=== PATIENT | female | born 1940 | race Caucasian/White ===

== ENCOUNTER → 2020-11-09 | Outpatient (CLI) | payer OTHER ==
[~2020-11-09] MED LIST: AXID300 MG PO; COLACE100 MG PO; FISHOIL; FLEXERIL PO; HALFPRIN162 MG PO; HYDROXYZINE PAM25 M1 OR; NORCO 5-325 TA1 EACH PO; PRAVACHOL40 MG PO; ZESTORETIC 20-1 EACH PO
== END ==
LOC: M.RAD 13:30
PROVIDERS: ATTEND Family Medicine
DX: M81.0 Age-related osteoporosis without current pathological fracture (principal)